=== PATIENT | male | born 1960 | race Caucasian/White ===

== ENCOUNTER 2017-06-02 17:08 | Emergency (ER) | payer BC ==
[2017-06-02 17:14] VITALS: BP 114/78
--- NOTE | 2017-06-02 17:17 | ED ---
Skin Complaint - HPI Summary HPI Summary: 57 year old male presents with a swollen left 4th finger. He attempted to take out a foreign body. - History of Current Complaint Chief Complaint: UCSkin Time Seen by Provider: 06/02/17 17:16 Stated Complaint: SOFT TISSUE Hx Obtained From: Patient Onset/Duration: Started Days Ago Timing: Intermittent Onset Severity: Moderate Current Severity: Moderate Pain Scale Used: 0-10 Numeric - 5 Skin Location: Discrete - left 4th finger - Allergy/Home Medications Allergies/Adverse Reactions: Allergies Allergy/AdvReac Type Severity Reaction Status Date / Time No Known Allergies Allergy Verified 06/02/17 17:14 PMH/Surg Hx/FS Hx/Imm Hx Previously Healthy: Yes Endocrine/Hematology History: Denies: Hx Anticoagulant Therapy, Hx Diabetes, Hx Thyroid Disease Cardiovascular History: Denies: Hx Congestive Heart Failure, Hx Deep Vein Thrombosis, Hx Hypertension , Hx Myocardial Infarction, Hx Pacemaker/ICD Respiratory History: Denies: Hx Asthma, Hx Chronic Obstructive Pulmonary Disease (COPD), Hx Lung Cancer, Hx Pneumonia, Hx Pulmonary Embolism GI History: Denies: Hx Gall Bladder Disease, Hx Gastrointestinal Bleed, Hx Ulcer, Hx Urosepsis History: Denies: Hx Kidney Stones, Hx Renal Disease Neurological History: Denies: Hx Dementia, Hx Migraine, Hx Seizures, Hx Transient Ischemic Attacks (TIA) Psychiatric History: Denies: Hx Anxiety, Hx Depression, Hx Schizophrenia, Hx Bipolar Disorder Infectious Disease History: No Infectious Disease History: Denies: Hx Clostridium Difficile, Hx Hepatitis, Hx Human Immunodeficiency Virus (HIV), Hx of Known/Suspected MRSA, Hx Shingles, Hx Tuberculosis, Hx Known/ Suspected VRE, Hx Known/Suspected VRSA, History Other Infectious Disease, Traveled Outside the [place] in Last 30 Days - Family History Known Family History: Positive: Hypertension Negative: Cardiac Disease - Social History Alcohol Use: Daily Substance Use Type: Reports: None Smoking Status (MU): Former Smoker Review of Systems Constitutional: Negative Eyes: Negative ENT: Negative Cardiovascular: Negative Respiratory: Negative Gastrointestinal: Negative Genitourinary: Negative Musculoskeletal: Negative Positive: Other - foreign body left 4th finger Neurological: Negative Psychological: Normal All Other Systems Reviewed And Are Negative: Yes Physical Exam Triage Information Reviewed: Yes Vital Signs On Initial Exam: Initial Vitals Temp Pulse Resp BP Pulse Ox 35.6 C 59 18 114/78 99 06/02/17 17:10 06/02/17 17:10 06/02/17 17:10 06/02/17 17:10 06/02/17 17:10 Vital Signs Reviewed: Yes Appearance: Positive: Well-Appearing Skin: Positive: Other - foreign body left 4th finger Diagnostics - Vital Signs Vital Signs Temp Pulse Resp BP Pulse Ox 06/02/17 17:10 35.6 C 59 18 114/78 99 - Laboratory Lab Statement: Any lab studies that have been ordered have been reviewed, and results considered in the medical decision making process. Course/Dx - Diagnoses Provider Diagnoses: Foreign body (FB) in soft tissue Discharge - Discharge Plan Condition: Stable Disposition: HOME Prescriptions: Cephalexin CAP* [Keflex CAP*] 500 mg PO TID #30 cap Patient Education Materials: Soft Tissue Foreign Body (ED) Referrals: Alethea Valencia MD [Primary Care Provider] -
--- NOTE | 2017-06-03 19:01 | ED ---
Progress - Progress Note Progress Note: NO CHANGE. CX PENDING. Course/Dx - Diagnoses Provider Diagnoses: Foreign body (FB) in soft tissue
== END 2017-06-02 17:40 | disposition home or self-care (01) ==
LOC: UCEAST 17:08
DX: S60.455A Superficial foreign body of left ring finger, initial encounter (principal); B95.61 Methicillin susceptible Staphylococcus aureus infection as the cause of diseases classified elsewhere; X58.XXXA Exposure to other specified factors, initial encounter; Y93.9 Activity, unspecified; Y92.9 Unspecified place or not applicable; Z87.891 Personal history of nicotine dependence
CPT/HCPCS: 87070; 87077; 87186; 87205; 87640; 87641; 99212; G0463

== ENCOUNTER 2018-01-10 09:15 | Emergency (ER) | payer BC ==
[2018-01-10 09:44] VITALS: BP 106/73
--- NOTE | 2018-01-10 11:42 | UC ---
Lower Extremity/Ankle HPI - HPI Summary HPI Summary: Pt presents with red and swollen right big toe along the nail. Says that about 2 days ago symptoms started and noticed some drainage from the area with moderate pain. Has drained it himself today. Denies fever, chills, or injury. - History of Current Complaint Chief Complaint: UCLowerExtremity Stated Complaint: SWOLLEN RED TOE Time Seen by Provider: 01/10/18 11:42 Hx Obtained From: Patient Onset/Duration: Sudden Onset Severity Initially: Mild Severity Currently: Mild Pain Intensity: 2 Pain Scale Used: 0-10 Numeric - Allergies/Home Medications Allergies/Adverse Reactions: Allergies Allergy/AdvReac Type Severity Reaction Status Date / Time No Known Allergies Allergy Verified 01/10/18 09:41 PMH/Surg Hx/FS Hx/Imm Hx - Additional Past Medical History Additional PMH: None Previously Healthy: Yes Other History Of: Negative For: HIV, Hepatitis B, Hepatitis C, Anticoagulant Therapy - Surgical History Surgical History: None - Family History Known Family History: Positive: Hypertension Negative: Cardiac Disease - Social History Occupation: Employed Full-time Lives: With Family Alcohol Use: Occasionally Substance Use Type: None Smoking Status (MU): Former Smoker When Did the Patient Quit Smoking/Using Tobacco: early s Review of Systems Constitutional: Negative Skin: Other - Redness and pain right great toe Respiratory: Negative Cardiovascular: Negative Neurovascular: Negative Musculoskeletal: Negative Neurological: Negative Psychological: Negative All Other Systems Reviewed And Are Negative: Yes Physical Exam - Summary Physical Exam Summary: GENERAL: NAD. WDWN. No pain distress. SKIN: Right great toe - surrounding skin of nail with mild erythema. Yellow purulent discharge from medial aspect of nail. No FB, streaking, or open wound. NECK: Supple. Nontender. No lymphadenopathy. CHEST: CTAB. No r/r/w. No accessory muscle use. Breathing comfortably and in no distress. CV: RRR. Without m/r/g. Pulses intact. Brisk cap refill. NEURO: Alert. PSYCH: Age appropriate behavior. Triage Information Reviewed: Yes Vital Signs: Initial Vital Signs Temp 97.9 F 01/10/18 09:41 Pulse 67 01/10/18 09:41 Resp 16 01/10/18 09:41 BP 106/73 01/10/18 09:41 Pulse Ox 98 01/10/18 09:41 Lower Extremity Course/Dx - Course Course Of Treatment: paronychia right great toe - draining well. Keflex. - Differential Dx/Diagnosis Provider Diagnoses: paronychia right great toe Discharge - Sign-Out/Discharge Documenting (check all that apply): Discharge/Admit/Transfer - Discharge Plan Condition: Stable Disposition: HOME Prescriptions: Cephalexin CAP* [Keflex CAP*] 500 mg PO BID #14 cap Patient Education Materials: Paronychia (ED) Referrals: Alethea Valencia MD [Primary Care Provider] - Additional Instructions: If you develop a fever, shortness of breath, chest pain, new or worsening symptoms - please call your PCP or go to the ED. 1) May try soaking your toe in warm salt water to help with healing. - Billing Disposition and Condition Condition: STABLE Disposition: HOME
== END 2018-01-10 11:57 | disposition home or self-care (01) ==
LOC: UCEAST 09:15
DX: L03.031 Cellulitis of right toe (principal); Z87.891 Personal history of nicotine dependence
CPT/HCPCS: 99212; G0463

== ENCOUNTER 2018-04-21 12:38 | Emergency (ER) | payer BC ==
[2018-04-21 12:47] VITALS: BP 103/68
[2018-04-21] MEDS ORDERED: Lidocaine 1% MPF* 2 ML VIAL INJ ONE (13:19)
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
== END 2018-04-21 13:48 | disposition home or self-care (01) ==
LOC: UCEAST 12:38
DX: S80.211A Abrasion, right knee, initial encounter (principal); S50.311A Abrasion of right elbow, initial encounter; V18.0XXA Pedal cycle driver injured in noncollision transport accident in nontraffic accident, initial encounter; Y93.55 Activity, bike riding; Y92.9 Unspecified place or not applicable; Z87.891 Personal history of nicotine dependence
CPT/HCPCS: 99211; G0463

== ENCOUNTER 2018-05-19 11:45 | Emergency (ER) | payer BC ==
[2018-05-19 12:29] LABS: ABS Basophils 0 10^3/ul (0-0.2); ABS Eosinophils 0 10^3/ul (0-0.6); ABS Lymphocytes 1.3 10^3/ul (1.0-4.8); ABS Monocytes 0.5 10^3/ul (0-0.8); ABS Nucleated RBC 0 10^3/ul; Eosinophil % 0.8 % (0-6); Hematocrit 41 % (42-52); Hemoglobin 13.8 g/dl (14.0-18.0); Lymphocyte % 22.2 % (25-47); Mean Corpuscular HGB Conc 34 g/dl (31-36); Mean Corpuscular Hemoglobin 30 pg (27-31); Mean Corpuscular Volume 87 fL (80-94); Mean Platelet Volume 8.2 um3 (7.4-10.4); Nucleated Red Blood Cells % 0.1; Platelet Count 129 10^3/ul (150-450); Red Blood Count 4.68 10^6/ul (4.00-5.40); Red Cell Distribution Width 13 % (10.5-15)
[2018-05-19 12:59] LABS: EGFR Non-African American 97.2 (>60)
[2018-05-19 13:55] LABS: Urine Appearance Cloudy; Urine Blood 2+ (Negative); Urine Color Amber; Urine Ketones Negative (Negative); Urine Protein 2+(100 mg/dL) (Negative); Urine Red Blood Cell 3+(>10/hpf) (Absent); Urine Specific Gravity 1.019 (1.010-1.030); Urine Urobilinogen Negative (Negative); Urine White Blood Cell 3+(>20/hpf) (Absent)
--- NOTE | 2018-05-19 16:16 | RAD ---
INDICATION: Left flank abdominal pain. COMPARISON: There are no relevant prior studies available for comparison. TECHNIQUE: A CT scan of the abdomen and pelvis was performed without intravenous and without oral contrast. Contiguous axial sections were obtained from the lung bases through the symphysis pubis. Images were reconstructed in the coronal and sagittal planes. FINDINGS: LUNGS: There is mild dependent bilateral lower lobe subsegmental atelectasis. No pleural effusion is present. LIVER: The liver is normal in size. No focal abnormality is seen on this noncontrast study. GALLBLADDER: The gallbladder is contracted. No calcified gallstones are seen. BILE DUCTS: No intra or extrahepatic ductal distention is seen. SPLEEN: The spleen is normal in size without significant focal abnormality. PANCREAS: The pancreas is normal in size. No ductal distention or calcifications are seen. ADRENAL GLANDS: The adrenal glands are normal in size. KIDNEYS: The kidneys are normal in size. No renal calculi or hydronephrosis is seen. No ureteral or bladder calculi are seen. There are several calcifications within the pelvis which limits the study slightly. AORTA: The abdominal aorta and iliac vessels appear slightly ectatic. No aneurysm is seen. LYMPH NODES: No significant enlarged retroperitoneal lymph nodes are seen by size criteria. BOWEL: The stomach, small and large bowel appear nondistended. The appendix appears to be within normal limits. There is mild descending and sigmoid diverticulosis without evidence for diverticulitis. There is a moderate to large amount retained stool present throughout the colon. PERITONEUM: No free intraperitoneal air or fluid is seen. BONES: No significant focal osseous abnormality is seen. IMPRESSION: 1. NO RENAL CALCULI OR EVIDENCE FOR HYDRONEPHROSIS. 2. MODERATE TO LARGE AMOUNT OF RETAINED STOOL.
[2018-05-19 17:31] VITALS: BP 122/85
--- NOTE | 2018-05-19 18:24 | ED ---
GI/ HPI - HPI Summary HPI Summary: Patient is a 58 y/o M w/ c/o left flank pain onsetting this morning. After pain onset, patient states that he went to urinate and noted blood coming out in clots. He reports most recent urination was minimally red but coloration was still present. Flank pain has lessened but is still present as well. However, on triage, pain is rated 0/10. On triage as well, nothing is noted to aggravate/ alleviate Sx, no treatment prior to ED arrival is reported. Hx of kidney stones is denied, patient has Hx of Rhabdomyelosis. - History of Current Complaint Chief Complaint: EDUrogenitalProblems Time Seen by Provider: 05/19/18 15:07 Stated Complaint: LT FLANK PAIN/BLOOD IN URINE Hx Obtained From: Patient Onset/Duration: Started Hours Ago - onset this morning, Still Present - pain is noted to be minimally present in the room Timing: Constant Current Severity: Mild - minimally present pain Pain Intensity: 0 Location of Pain: Flank - left Associated Signs and Symptoms: Positive: Hematuria - Allergy/Home Medications Allergies/Adverse Reactions: Allergies Allergy/AdvReac Type Severity Reaction Status Date / Time No Known Allergies Allergy Verified 05/19/18 12:03 Home Medications: Home Medications NK [No Home Medications Reported] 05/19/18 [History Confirmed 05/19/18] PMH/Surg Hx/FS Hx/Imm Hx Endocrine/Hematology History: Denies: Hx Anticoagulant Therapy, Hx Diabetes, Hx Thyroid Disease Cardiovascular History: Denies: Hx Congestive Heart Failure, Hx Deep Vein Thrombosis, Hx Hypertension , Hx Myocardial Infarction, Hx Pacemaker/ICD Respiratory History: Denies: Hx Asthma, Hx Chronic Obstructive Pulmonary Disease (COPD), Hx Lung Cancer, Hx Pneumonia, Hx Pulmonary Embolism GI History: Denies: Hx Gall Bladder Disease, Hx Gastrointestinal Bleed, Hx Ulcer, Hx Urosepsis History: Denies: Hx Kidney Stones, Hx Renal Disease Neurological History: Denies: Hx Dementia, Hx Migraine, Hx Seizures, Hx Transient Ischemic Attacks (TIA) Psychiatric History: Denies: Hx Anxiety, Hx Depression, Hx Schizophrenia, Hx Bipolar Disorder Infectious Disease History: No Infectious Disease History: Denies: Hx Clostridium Difficile, Hx Hepatitis, Hx Human Immunodeficiency Virus (HIV), Hx of Known/Suspected MRSA, Hx Shingles, Hx Tuberculosis, Hx Known/ Suspected VRE, Hx Known/Suspected VRSA, History Other Infectious Disease, Traveled Outside the [place] in Last 30 Days - Family History Known Family History: Positive: Hypertension Negative: Cardiac Disease - Social History Alcohol Use: Occasionally Substance Use Type: Reports: None Smoking Status (MU): Former Smoker Review of Systems All Other Systems Reviewed And Are Negative: Yes Physical Exam - Summary Physical Exam Summary: Appearance: The patient is well-nourished in no acute distress and in no acute pain. Skin: The skin is warm and dry and skin color reflects adequate perfusion. HEENT: The head is normocephalic and atraumatic. The pupils are equal and reactive. The conjunctivae are clear and without drainage. Nares are patent and without drainage. Mouth reveals moist mucous membranes and the throat is without erythema and exudate. The external ears are intact. The ear canals are patent and without drainage. The tympanic membranes are intact. Neck: The neck is supple with full range of motion and non-tender. There are no carotid bruits. There is no neck vein distension. Respiratory: Chest is non-tender. Lungs are clear to auscultation and breath sounds are symmetrical and equal. Cardiovascular: Heart is regular rate and rhythm. There is no murmur or rub auscultated. There is no peripheral edema and pulses are symmetrical and equal. Abdomen: The abdomen is soft and non-tender. There are normal bowel sounds heard in all four quadrants and there is no organomegaly palpated. Musculoskeletal: There is no back tenderness noted. Extremities are non-tender with full range of motion. There is good capillary refill. There is no peripheral edema or calf tenderness elicited. Neurological: Patient is alert and oriented to person, place and time. The patient has symmetrical motor strength in all four extremities. Cranial nerves are grossly intact. Deep tendon reflexes are symmetrical and equal in all four extremities. Psychiatric: The patient has an appropriate affect and does not exhibit any anxiety or depression. Triage Information Reviewed: Yes Vital Signs On Initial Exam: Initial Vitals Temp Pulse Resp BP Pulse Ox 97.7 F 58 15 122/73 98 05/19/18 11:59 05/19/18 11:59 05/19/18 11:59 05/19/18 11:59 05/19/18 11:59 Vital Signs Reviewed: Yes Diagnostics - Vital Signs Vital Signs Temp Pulse Resp BP Pulse Ox 05/19/18 17:36 98.5 F 53 16 122/85 98 05/19/18 15:29 53 122/85 98 05/19/18 15:16 49 99 05/19/18 15:00 51 122/86 99 05/19/18 11:59 97.7 F 58 15 122/73 98 - Laboratory Lab Results: Lab Results 05/19/18 05/19/18 05/19/18 Range/Units 12:20 12:20 12:20 WBC 6.0 (3.5-10.8) 10^3/ul RBC 4.68 (4.00-5.40) 10^6/ul Hgb 13.8 L (14.0-18.0) g/dl Hct 41 L (42-52) % MCV 87 (80-94) fL MCH 30 (27-31) pg MCHC 34 (31-36) g/dl RDW 13 (10.5-15) % Plt Count 129 L (150-450) 10^3/ul MPV 8.2 (7.4-10.4) um3 Neut % (Auto) 67.7 (38-83) % Lymph % (Auto) 22.2 L (25-47) % [place] % (Auto) 8.5 H (0-7) % Eos % (Auto) 0.8 (0-6) % Baso % (Auto) 0.8 (0-2) % Absolute Neuts (auto) 4.0 (1.5-7.7) 10^3/ul Absolute Lymphs (auto) 1.3 (1.0-4.8) 10^3/ul Absolute Monos (auto) 0.5 (0-0.8) 10^3/ul Absolute Eos (auto) 0 (0-0.6) 10^3/ul Absolute Basos (auto) 0 (0-0.2) 10^3/ul Absolute Nucleated RBC 0 10^3/ul Nucleated RBC % 0.1 Sodium 139 (135-145) mmol/L Potassium 4.6 (3.5-5.0) mmol/L Chloride 107 (101-111) mmol/L Carbon Dioxide 29 (22-32) mmol/L Anion Gap 3 (2-11) mmol/L BUN 20 (6-24) mg/dL Creatinine 0.82 (0.67-1.17) mg/dL Est GFR ( Amer) 117.6 (>60) Est GFR (Non-Af Amer) 97.2 (>60) BUN/Creatinine Ratio 24.4 H (8-20) Glucose 97 (70-100) mg/dL Lactic Acid 1.2 (0.5-2.0) mmol/L Calcium 9.3 (8.6-10.3) mg/dL Total Bilirubin 0.50 (0.2-1.0) mg/dL AST 16 (13-39) U/L ALT 18 (7-52) U/L Alkaline Phosphatase 58 (34-104) U/L Total Creatine Kinase 53 (10-223) U/L Total Protein 6.7 (6.4-8.9) g/dL Albumin 4.2 (3.2-5.2) g/dL Globulin 2.5 (2-4) g/dL Albumin/Globulin Ratio 1.7 (1-3) Urine Color Urine Appearance Urine pH (5-9) Ur Specific [place] (1.010-1.030) Urine Protein (Negative) Urine Ketones (Negative) Urine Blood (Negative) Urine Nitrate (Negative) Urine Bilirubin (Negative) Urine Urobilinogen (Negative) Ur Leukocyte Esterase (Negative) Urine WBC (Auto) (Absent) Urine RBC (Auto) (Absent) Urine Bacteria (Absent) Urine Glucose (Negative) 05/19/18 Range/Units 13:18 WBC (3.5-10.8) 10^3/ul RBC (4.00-5.40) 10^6/ul Hgb (14.0-18.0) g/dl Hct (42-52) % MCV (80-94) fL MCH (27-31) pg MCHC (31-36) g/dl RDW (10.5-15) % Plt Count (150-450) 10^3/ul MPV (7.4-10.4) um3 Neut % (Auto) (38-83) % Lymph % (Auto) (25-47) % Sanborn % (Auto) (0-7) % Eos % (Auto) (0-6) % Baso % (Auto) (0-2) % Absolute Neuts (auto) (1.5-7.7) 10^3/ul Absolute Lymphs (auto) (1.0-4.8) 10^3/ul Absolute Monos (auto) (0-0.8) 10^3/ul Absolute Eos (auto) (0-0.6) 10^3/ul Absolute Basos (auto) (0-0.2) 10^3/ul Absolute Nucleated RBC 10^3/ul Nucleated RBC % Sodium (135-145) mmol/L Potassium (3.5-5.0) mmol/L Chloride (101-111) mmol/L Carbon Dioxide (22-32) mmol/L Anion Gap (2-11) mmol/L BUN (6-24) mg/dL Creatinine (0.67-1.17) mg/dL Est GFR ( Amer) (>60) Est GFR (Non-Af Amer) (>60) BUN/Creatinine Ratio (8-20) Glucose (70-100) mg/dL Lactic Acid (0.5-2.0) mmol/L Calcium (8.6-10.3) mg/dL Total Bilirubin (0.2-1.0) mg/dL AST (13-39) U/L ALT (7-52) U/L Alkaline Phosphatase (34-104) U/L Total Creatine Kinase (10-223) U/L Total Protein (6.4-8.9) g/dL Albumin (3.2-5.2) g/dL Globulin (2-4) g/dL Albumin/Globulin Ratio (1-3) Urine Color Marly Urine Appearance Cloudy Urine pH 6.0 (5-9) Ur Specific [place] 1.019 (1.010-1.030) Urine Protein 2+(100 mg/dl) A (Negative) Urine Ketones Negative (Negative) Urine Blood 2+ A (Negative) Urine Nitrate Negative (Negative) Urine Bilirubin Negative (Negative) Urine Urobilinogen Negative (Negative) Ur Leukocyte Esterase Negative (Negative) Urine WBC (Auto) 3+(>20/hpf) A (Absent) Urine RBC (Auto) 3+(>10/hpf) A (Absent) Urine Bacteria Absent (Absent) Urine Glucose Negative (Negative) Result Diagrams: 05/19/18 12:20 05/19/18 12:20 Lab Statement: Any lab studies that have been ordered have been reviewed, and results considered in the medical decision making process. - CT CT abd/pel CT Interpretation: No Acute Changes CT Interpretation Completed By: Radiologist - IMPRESSION: 1. NO RENAL CALCULI OR EVIDENCE FOR HYDRONEPHROSIS. 2. MODERATE TO LARGE AMOUNT OF RETAINED STOOL. THIS REPORT WAS REVIEWED BY ED PHYSICIAN. Re-Evaluation - Re-Evaluation First Eval Re-Evaluation Time: 17:26 Change: Improved Comment: Patient states pain is completely gone. He will be discharged to home, patient is agreeable with this plan. GIGU Course/Dx - Course Course Of Treatment: Mr. Mera presented complaining of left flank pain and hematuria. His urine had 3+ white blood cells and 3+ red blood cells and it but no obvious signs of infection. A CT scan revealed no kidney stone. CPK was normal and obtain because the patient has had rhabdomyolysis before from overexercise. It's unclear what exactly occurred he may have passed a stone. He has no evidence for rhabdo at this time. His urine is sent for culture and antibiotics will be held pending. - Diagnoses Provider Diagnoses: Acute left flank pain Discharge - Sign-Out/Discharge Documenting (check all that apply): Patient Departure - discharge - Discharge Plan Condition: Stable Disposition: HOME Patient Education Materials: Flank Pain (ED) Referrals: Alethea Valencia MD [Primary Care Provider] - 3 Days Additional Instructions: Follow up with primary care physician in 2-3 days. Return to ED for any changing or worsening Sx. - Billing Disposition and Condition Condition: STABLE Disposition: Home - Attestation Statements Document Initiated by Mansoor: Yes Documenting Scribe: Chandrakant Miller Provider For Whom Mansoor is Documenting (Include Credential): Stephen Garcia MD Scribe Attestation: IChandrakant, scribed for Stephen Garcia MD on 05/19/18 at 1854. Scribe Documentation Reviewed: Yes Provider Attestation: The documentation as recorded by the Chandrakant arredondo accurately reflects the service I personally performed and the decisions made by me, Stephen Garcia MD
== END 2018-05-19 17:36 | disposition home or self-care (01) ==
LOC: ED 11:45
DX: R10.84 Generalized abdominal pain (principal); R31.9 Hematuria, unspecified; Z87.891 Personal history of nicotine dependence
CPT/HCPCS: 36415; 74176; 80053; 81003; 81015; 82550; 83605; 85025; 87086; 99282